=== PATIENT | female | born 1945 | race Caucasian/White ===

== ENCOUNTER 2018-11-09 07:42 | Inpatient (IN) ==
[2018-11-09] MEDS ORDERED: PANTOPRAZOLE 40 MG VIAL IV STA (09:03)
[2018-11-09] MEDS ORDERED: ONDANSETRON 4 MG/2 ML VIAL IV STA (09:03)
[2018-11-09] MEDS ORDERED: DICYCLOMINE 20 MG/2 ML AMP IM ONE (09:03)
[2018-11-09] MEDS ORDERED: METOCLOPRAMIDE 10 MG/2 ML VIAL IV STA (09:03)
[2018-11-09] MEDS ORDERED: SODIUM CHLORIDE 0.9% 500 ML IV STA (09:03)
[2018-11-09 09:43] LABS: Basophils % 0.2 % (0.0-0.8); Hematocrit 42.8 VOL% (35.7-47.0); Hemoglobin 14.2 GM/DL (12.0-16.0); Immature Granulocytes % 0.5 %; Immature Granulocytes Absolute 0.09 #; Lymphocytes # 2.4 10*3/uL (1.4-4.0); Lymphocytes % 14.4 % (21.3-54.2); Mean Corpuscular HGB Conc 33.2 GM/DL (32-36); Mean Corpuscular Hemoglobin 31 PG (27-34); Mean Corpuscular Volume 92.6 FL (87-102); Mean Platelet Volume 9.7 FL (9.6-12.0); Monocytes % 5.7 % (1.7-12.7); Neutrophils # 13.2 10*3/uL (1.4-7.4); Neutrophils % 79.2 % (38.7-73.9); Platelet Count 243 T/CUMM (130-400); Red Blood Count 4.62 MC/CUMM (3.8-5.5); Red Cell Distribution Width 12.1 % (9.3-17.3); White Blood Count 16.7 T/CUMM (4-12)
[2018-11-09 10:00] LABS: Albumin 4.3 G/DL (3.4-5.0); Bilirubin,Total 1.6 MG/DL (0.2-1.0); Calcium 8.5 MG/DL (8.5-10.1); Osmolality,Calculated 262.7 MOS/KG (273-304); Potassium 3.6 MMOL/L (3.5-5.1); Total Protein 8.2 G/DL (6.4-8.3)
[2018-11-09 10:13] LABS: Apearance,Urine Slightly Hazy (Clear); Bilirubin,Urine Negative (Negative); Blood, Urine Moderate mg/dL (Negative); Glucose,Urine (UA) 150 mg/dL (Negative); Ketones,Urine 20 mg/dL (Negative); Mucus,Urine Occasional /LPF (Occasional); Nitrite,Urine Negative (Negative); Protein,Urine 30 MG/DL; RBC,Urine 45 /HPF (0-4); Squamous Epithelial Cell,Urine Occasional /HPF (0-10); Urine Color Yellow (Yellow); Urine Specific Gravity 1.023 (1.001-1.035); Urine Urobilinogen < 2.0 EU/DL (0.2-1.0); WBC,Urine 3 /HPF (0-6)
[2018-11-09] MEDS ORDERED: LACTULOSE 20 GM/30 ML UDCUP PO PRN (11:20)
[2018-11-09] MEDS ORDERED: ZALEPLON 5 MG CAPSULE PO PRN (11:20)
[2018-11-09] MEDS ORDERED: PROMETHAZINE 25 MG/1 ML VIAL IM PRN (11:20)
[2018-11-09] MEDS ORDERED: ACETAMINOPHEN 325 MG TABLET PO PRN (11:20)
[2018-11-09] MEDS ORDERED: PROMETHAZINE 25 MG TABLET PO PRN (11:20)
[2018-11-09] MEDS: DOCUSATE SODIUM 100 MG CAPSULE PO SCH ×2 (13:36→20:58)
[2018-11-09] MEDS: SODIUM CHLORIDE 0.9% 1,000 ML IV SCH ×2 (13:37→23:27)
[2018-11-09] MEDS: BISACODYL 5 MG TABLET PO SCH (13:37)
[2018-11-09] MEDS: MORPHINE 4 MG/1 ML VIAL IV PRN ×2 (13:41→18:34)
[2018-11-09] MEDS: DICYCLOMINE 20 MG TABLET PO SCH ×2 (15:45→20:58)
[2018-11-09] MEDS: traZODone 50 MG TABLET PO SCH (20:58)
[2018-11-10 04:28] LABS: Basophils % 0.1 % (0.0-0.8); Eosinophils % 0.1 % (0.00-10.9); Hematocrit 37.1 VOL% (35.7-47.0); Hemoglobin 11.7 GM/DL (12.0-16.0); Immature Granulocytes % 0.6 %; Immature Granulocytes Absolute 0.08 #; Lymphocytes # 1.4 10*3/uL (1.4-4.0); Lymphocytes % 10.1 % (21.3-54.2); Mean Corpuscular HGB Conc 31.5 GM/DL (32-36); Mean Corpuscular Hemoglobin 30 PG (27-34); Mean Corpuscular Volume 96.4 FL (87-102); Monocytes # 0.8 10*3/uL (0.11-0.8); Monocytes % 5.7 % (1.7-12.7); Neutrophils # 11.3 10*3/uL (1.4-7.4); Neutrophils % 83.4 % (38.7-73.9); Platelet Count 171 T/CUMM (130-400); Red Blood Count 3.85 MC/CUMM (3.8-5.5); Red Cell Distribution Width 12.4 % (9.3-17.3); White Blood Count 13.6 T/CUMM (4-12)
[2018-11-10 04:41] LABS: Albumin 2.9 G/DL (3.4-5.0); Bilirubin,Total 1.7 MG/DL (0.2-1.0); Calcium 7.2 MG/DL (8.5-10.1); Osmolality,Calculated 270.8 MOS/KG (273-304); Potassium 3.4 MMOL/L (3.5-5.1); Total Protein 6.1 G/DL (6.4-8.3)
[2018-11-10] MEDS: DOCUSATE SODIUM 100 MG CAPSULE PO SCH ×2 (08:22→21:53)
[2018-11-10] MEDS: BUDESONIDE 3 MG CAPSULE PO SCH (08:23)
[2018-11-10] MEDS: PANTOPRAZOLE 40 MG TABLET PO SCH (08:23)
[2018-11-10] MEDS: OXYBUTYNIN 5 MG TABLET PO SCH (08:23)
[2018-11-10] MEDS: POLYETHYLENE GLYCOL POWDER 17 GM PACK PO SCH (08:23)
[2018-11-10] MEDS: DICYCLOMINE 20 MG TABLET PO SCH ×3 (08:23→21:53)
[2018-11-10] MEDS: SODIUM CHLORIDE 0.9% 1,000 ML IV SCH ×3 (08:23→23:55)
[2018-11-10] MEDS: BISACODYL 5 MG TABLET PO SCH (08:23)
[2018-11-10] MEDS: MORPHINE 4 MG/1 ML VIAL IV PRN (08:30)
[2018-11-10] MEDS: POTASSIUM CHLORIDE 20 MEQ TABLET PO SCH ×2 (14:59→21:53)
[2018-11-10] MEDS: ONDANSETRON 4 MG/2 ML VIAL IV PRN (15:08)
[2018-11-10] MEDS: traZODone 50 MG TABLET PO SCH (21:53)
[2018-11-10] MEDS: CALCIUM (CARBONATE)/VITAMIN D 600 MG-400 UNIT TABLET PO SCH (21:53)
[2018-11-11 03:58] LABS: Basophils % 0.3 % (0.0-0.8); Eosinophils % 0.1 % (0.00-10.9); Hematocrit 32.8 VOL% (35.7-47.0); Hemoglobin 10.6 GM/DL (12.0-16.0); Immature Granulocytes % 1.3 %; Immature Granulocytes Absolute 0.17 #; Lymphocytes # 1.3 10*3/uL (1.4-4.0); Lymphocytes % 10.3 % (21.3-54.2); Mean Corpuscular HGB Conc 32.3 GM/DL (32-36); Mean Corpuscular Hemoglobin 31 PG (27-34); Mean Corpuscular Volume 96.5 FL (87-102); Mean Platelet Volume 9.9 FL (9.6-12.0); Monocytes # 0.9 10*3/uL (0.11-0.8); Monocytes % 7.4 % (1.7-12.7); Neutrophils # 10.2 10*3/uL (1.4-7.4); Neutrophils % 80.6 % (38.7-73.9); Platelet Count 155 T/CUMM (130-400); Red Cell Distribution Width 12.6 % (9.3-17.3); White Blood Count 12.7 T/CUMM (4-12)
[2018-11-11 04:22] LABS: Calcium 6.8 MG/DL (8.5-10.1); Osmolality,Calculated 274.5 MOS/KG (273-304); Potassium 4.1 MMOL/L (3.5-5.1)
[2018-11-11] MEDS ORDERED: cefOXitin 2,000 MG in SYRINGE 1 EACH IV ONE (06:55)
[2018-11-11] MEDS ORDERED: BUPIVACAINE 0.5% 50 ML VIAL ONE (08:56)
[2018-11-11] MEDS ORDERED: LIDOCAINE 1%/EPI INJ 20 ML VIAL ONE (08:56)
[2018-11-11] MEDS ORDERED: FLUORESCEIN 500 MG/5 ML VIAL IV ONE (11:15)
[2018-11-11] MEDS ORDERED: TISSUE ADHESIVE 1 EACH APPLICATOR TOP ONE (11:26)
[2018-11-11] MEDS ORDERED: fentaNYL 100 MCG/2 ML VIAL ONE ×2 (11:55)
[2018-11-11] MEDS ORDERED: SEVOFLURANE 1 UNIT/15 MINUTE INH ONE (11:55)
[2018-11-11] MEDS ORDERED: PROPOFOL 200 MG/20 ML VIAL IV ONE (11:55)
[2018-11-11] MEDS ORDERED: LACTATED RINGERS 1,000 ML IV ONE (11:56)
[2018-11-11] MEDS ORDERED: FUROSEMIDE 20 MG/2 ML VIAL ONE (11:56)
[2018-11-11] MEDS ORDERED: ONDANSETRON 4 MG/2 ML VIAL ONE (11:56)
[2018-11-11] MEDS ORDERED: ACETAMINOPHEN 1,000 MG/100 ML VIAL IV ONE (11:56)
[2018-11-11] MEDS ORDERED: ROCURONIUM 100 MG/10 ML VIAL IV ONE (11:56)
[2018-11-11] MEDS ORDERED: PHENYLEPHRINE 1 MG/10 ML SYRINGE IV ONE (11:56)
[2018-11-11] MEDS: CALCIUM (CARBONATE)/VITAMIN D 600 MG-400 UNIT TABLET PO SCH ×2 (14:11→20:47)
[2018-11-11] MEDS: DOCUSATE SODIUM 100 MG CAPSULE PO SCH ×2 (14:11→20:47)
[2018-11-11] MEDS: DICYCLOMINE 20 MG TABLET PO SCH ×3 (14:11→20:47)
[2018-11-11] MEDS: PANTOPRAZOLE 40 MG TABLET PO SCH (14:12)
[2018-11-11] MEDS: POLYETHYLENE GLYCOL POWDER 17 GM PACK PO SCH (14:12)
[2018-11-11] MEDS: BISACODYL 5 MG TABLET PO SCH (14:12)
[2018-11-11] MEDS: OXYBUTYNIN 5 MG TABLET PO SCH (14:12)
[2018-11-11] MEDS: BUDESONIDE 3 MG CAPSULE PO SCH (14:12)
[2018-11-11] MEDS: DEXT 5% NACL 0.45% KCL 20 MEQ 20 MEQ/1,000 ML BAG IV SCH ×2 (14:52→23:03)
[2018-11-11] MEDS: MORPHINE 4 MG/1 ML VIAL IV PRN (18:14)
[2018-11-11] MEDS: traZODone 50 MG TABLET PO SCH (20:47)
[2018-11-11] MEDS: ONDANSETRON 4 MG/2 ML VIAL IV PRN (20:53)
[2018-11-11] MEDS: SODIUM CHLORIDE 0.9% 1,000 ML IV SCH (23:01)
[2018-11-12] MEDS: DEXT 5% NACL 0.45% KCL 20 MEQ 20 MEQ/1,000 ML BAG IV SCH ×2 (00:04→10:30)
[2018-11-12 05:45] LABS: Basophils % 0.5 % (0.0-0.8); Eosinophils # 0.1 10*3/uL (0.0-0.87); Eosinophils % 1.1 % (0.00-10.9); Hematocrit 30.9 VOL% (35.7-47.0); Hemoglobin 9.7 GM/DL (12.0-16.0); Immature Granulocytes % 0.5 %; Immature Granulocytes Absolute 0.04 #; Lymphocytes # 1.3 10*3/uL (1.4-4.0); Lymphocytes % 15.2 % (21.3-54.2); Mean Corpuscular HGB Conc 31.4 GM/DL (32-36); Mean Corpuscular Hemoglobin 30 PG (27-34); Mean Corpuscular Volume 96.6 FL (87-102); Mean Platelet Volume 10.1 FL (9.6-12.0); Monocytes # 0.6 10*3/uL (0.11-0.8); Monocytes % 7.4 % (1.7-12.7); Neutrophils # 6.6 10*3/uL (1.4-7.4); Neutrophils % 75.3 % (38.7-73.9); Platelet Count 186 T/CUMM (130-400); Red Cell Distribution Width 12.6 % (9.3-17.3); White Blood Count 8.7 T/CUMM (4-12)
[2018-11-12 06:07] LABS: Calcium 7.2 MG/DL (8.5-10.1); Osmolality,Calculated 275.5 MOS/KG (273-304)
[2018-11-12 08:03] VITALS: BP 113/60
[2018-11-12] MEDS: DOCUSATE SODIUM 100 MG CAPSULE PO SCH (08:58)
[2018-11-12] MEDS: BUDESONIDE 3 MG CAPSULE PO SCH (08:58)
[2018-11-12] MEDS: DICYCLOMINE 20 MG TABLET PO SCH (08:58)
[2018-11-12] MEDS: CALCIUM (CARBONATE)/VITAMIN D 600 MG-400 UNIT TABLET PO SCH (08:58)
[2018-11-12] MEDS: PANTOPRAZOLE 40 MG TABLET PO SCH (08:59)
[2018-11-12] MEDS: BISACODYL 5 MG TABLET PO SCH (08:59)
[2018-11-12] MEDS: OXYBUTYNIN 5 MG TABLET PO SCH (08:59)
[2018-11-12] MEDS: POLYETHYLENE GLYCOL POWDER 17 GM PACK PO SCH (08:59)
== END 2018-11-12 12:14 | disposition home or self-care (01) | DRG 742 ==
LOC: N.ED 07:42 → N.EDINP 11:20 → N.5E 13:06
PROVIDERS: ADMIT Family Medicine; ATTEND Family Medicine